=== PATIENT | female | born 1935 | race Caucasian/White ===

== ENCOUNTER 2020-08-04 14:58 | Emergency (ER) | payer MEDICARE ==
[2020-08-04 15:29] LABS: BASO # 0.02 (0.02-0.10); EOS # 0.01 (0.04-0.40); EOS % 0.1 % (1.0-5.0); HEMATOCRIT 40.8 % (37.0-47.0); HEMOGLOBIN 13.8 g/dL (12.5-16.0); LYMPH# 1.94 (1.50-4.00); MEAN CELL VOLUME 92 fl (78-100); MEAN CORPUSCULAR HEMOGLOBIN 31 pg (27-31); MEAN CORPUSCULAR HGB CONC 34 g/dL (33-37); MONO # 0.99 (0.20-0.80); NEU # 10.51 (1.40-6.50); PLATELET COUNT 231 K/mm3 (130-400); RED BLOOD COUNT 4.43 M/mm3 (4.10-5.30); RED CELL DISTRIBUTION WIDTH 13.3 % (11.5-14.5); WHITE BLOOD COUNT 13.5 K/mm3 (4.8-10.8)
[2020-08-04 16:15] LABS: ALBUMIN 3.9 g/dL (3.4-4.8); POTASSIUM 3.1 mmol/L (3.5-5.1)
[2020-08-04 16:16] LABS: CALCIUM 8.7 mg/dL (8.3-10.5)
[2020-08-04 16:18] LABS: TOTAL PROTEIN 7.5 g/dL (6.2-8.1)
[2020-08-04 16:19] LABS: TOTAL BILIRUBIN 0.8 mg/dL (0.2-1.2)
[2020-08-04 16:30] LABS: TROPONIN-I 0.18 ng/mL (<0.030)
[2020-08-04 16:47] LABS: URINE COLOR YELLOW
[2020-08-04 16:48] LABS: URINE APPEARANCE CLOUDY; URINE BILIRUBIN 1+ (NEGATIVE); URINE BLOOD 50 ery/uL (NEGATIVE); URINE GLUCOSE NEGATIVE (NEGATIVE); URINE KETONE NEGATIVE (NEGATIVE); URINE LEUKOCYTE ESTERASE 2+ (NEGATIVE); URINE NITRATE NEGATIVE (NEGATIVE); URINE PROTEIN(semi-quant) 3+ mg/dL (NEGATIVE); URINE UROBILINOGEN NORMAL (NORMAL); URINE WBC >50 /hpf (0-3)
[2020-08-04 16:50] LABS: URINE MUCUS PRESENT (NOT PRESENT)
[2020-08-04] MEDS ORDERED: AMIODARONE200 MG PO (17:17)
[2020-08-04] MEDS ORDERED: CEPHALEXIN500 M1 PO (17:17)
[2020-08-04] MEDS ORDERED: ALENDRONATE SOD70 MG PO (17:17)
[2020-08-04] MEDS ORDERED: HCTZ 25MG25 MG PO (17:18)
[2020-08-04] MEDS ORDERED: LOSARTAN POTAS100 MG PO (17:18)
[2020-08-04] MEDS ORDERED: FERROUS SULFAT325 M4 PO (17:18)
[2020-08-04] MEDS ORDERED: ST. JOSEPH ASPI81 M1 PO (17:18)
[2020-08-04] MEDS ORDERED: CLOPIDOGREL75 M2 PO (17:19)
[2020-08-04] MEDS ORDERED: NORVASC 10MG10 MG PO (17:19)
[2020-08-04] MEDS ORDERED: MYSOLINE (17:20)
[2020-08-04] MEDS ORDERED: ACETAMINOPHEN325 M1 (17:21)
[2020-08-04] MEDS ORDERED: VITAMIN D21250 MCG PO (17:21)
[2020-08-04] MEDS ORDERED: NITROGLYCERIN0.4 M1 SL (17:21)
[2020-08-05 07:48] LABS: BASO # 0.03 (0.02-0.10); EOS # 0.02 (0.04-0.40); EOS % 0.2 % (1.0-5.0); HEMOGLOBIN 12.6 g/dL (12.5-16.0); LYMPH# 1.61 (1.50-4.00); MEAN CELL VOLUME 93 fl (78-100); MEAN CORPUSCULAR HEMOGLOBIN 32 pg (27-31); MEAN CORPUSCULAR HGB CONC 34 g/dL (33-37); MEAN PLATELET VOLUME 8.6 fl (7.4-10.4); MONO # 1.03 (0.20-0.80); NEU # 8.86 (1.40-6.50); PLATELET COUNT 208 K/mm3 (130-400); RED BLOOD COUNT 3.99 M/mm3 (4.10-5.30); RED CELL DISTRIBUTION WIDTH 13.4 % (11.5-14.5); WHITE BLOOD COUNT 11.6 K/mm3 (4.8-10.8)
[2020-08-05 08:01] LABS: POTASSIUM 3.8 mmol/L (3.5-5.1)
[2020-08-05 08:02] LABS: CALCIUM 8.2 mg/dL (8.3-10.5)
[2020-08-05 08:37] LABS: TROPONIN-I 0.18 ng/mL (<0.030)
[2020-08-05 11:30] VITALS: BP 135/58
== END 2020-08-05 11:30 | disposition home or self-care (01) ==
LOC: ED 14:58
PROVIDERS: Family Medicine; Physician Assistant
DX: N39.0 Urinary tract infection, site not specified (principal); G45.9 Transient cerebral ischemic attack, unspecified; R74.8 Abnormal levels of other serum enzymes; I25.10 Atherosclerotic heart disease of native coronary artery without angina pectoris; I25.2 Old myocardial infarction; G30.9 Alzheimer's disease, unspecified; F02.80 Dementia in other diseases classified elsewhere, unspecified severity, without behavioral disturbance, psychotic disturbance, mood disturbance, and anxiety; I48.91 Unspecified atrial fibrillation; I10 Essential (primary) hypertension; D64.9 Anemia, unspecified; Z90.49 Acquired absence of other specified parts of digestive tract; Z90.710 Acquired absence of both cervix and uterus; Z79.82 Long term (current) use of aspirin; Z79.899 Other long term (current) drug therapy; Z79.01 Long term (current) use of anticoagulants
CPT/HCPCS: J0696; J3480